=== PATIENT | female | born 1980 | race Caucasian/White ===

== ENCOUNTER 2017-09-26 20:31 | Emergency (ER) | payer SELFPAY ==
[~2017-09-26] VITALS: Ht 154.9 cm; Wt 43.1 kg
[2017-09-26 20:45] VITALS: BP 103/83
[2017-09-26] MEDS ORDERED: ONDANSETRON HCL/PF 4 MG/2 ML VIAL ONE (21:11)
[2017-09-26] MEDS ORDERED: MORPHINE SULFATE INJ 4 MG/ML DISP.SYRIN ONE (21:11)
[2017-09-26] MEDS ORDERED: ONDANSETRON HCL/PF - ER 4 MG/2 ML VIAL IM ONE (21:30)
[2017-09-26] MEDS ORDERED: MORPHINE SULFATE INJ 2 MG/ML DISP.SYRIN IM ONE (21:30)
== END 2017-09-26 21:28 | disposition home or self-care (01) ==
LOC: ER 20:35
DX: G89.18 Other acute postprocedural pain (principal); R68.84 Jaw pain; Z60.2 Problems related to living alone
CPT/HCPCS: A4606; J2270; J2405; Z7610